=== PATIENT | female | born 1995 | race African-American/Black ===

== ENCOUNTER 2018-02-18 15:49 | Observation (INO) | payer MEDICAID ==
[~2018-02-18] VITALS: Ht 174 cm; Wt 86.2 kg
[2018-02-18] MEDS ORDERED: FOLI20CA MT (16:43)
[2018-02-18] MEDS ORDERED: PNV1TABL50 PO (16:43)
== END 2018-02-18 18:15 | disposition home or self-care (01) ==
LOC: L&D 15:49
PROVIDERS: ADMIT Obstetrics & Gynecology; ATTEND Obstetrics & Gynecology
DX: O26.892 Other specified pregnancy related conditions, second trimester (principal); R10.30 Lower abdominal pain, unspecified; Z3A.26 26 weeks gestation of pregnancy
CPT/HCPCS: 99281; G0378